=== PATIENT | female | born 1995 | race Caucasian/White ===

== ENCOUNTER 2023-06-04 20:11 | Outpatient (REF) | payer OTHER, SELFPAY ==
[2023-06-08 14:16] LABS: Age Gdln ACOG Testing Note (.); IGP, rfx Aptima HPV ASCU Note (.)
== END 2023-06-04 20:12 | disposition home or self-care (01) ==
LOC: LAB 20:11
PROVIDERS: Visit Provider Obstetrics & Gynecology
DX: Z01.419 Encounter for gynecological examination (general) (routine) without abnormal findings (principal)
CPT/HCPCS: G0145

== ENCOUNTER 2024-06-22 20:05 | Outpatient (REF) | payer OTHER, SELFPAY ==
--- OUTSIDE RECORDS SUMMARY | 2024-06-22 20:09 | XMS_ITS | CCD ---
Author Organization [facility] Care Team Providers Care Guide Delegate Name Role Phone REYNA, DR MUHAMMAD Attending Unavailable REYNA, DR MUHAMMAD Consulting Unavailable BRAD, DR SOL [facility] Care Unavailable REYNA, DR MUHAMMAD Admitting Unavailable REYNA, DR MUHAMMAD Attending Unavailable REYNA, DR MUHAMMAD Consulting Unavailable BRAD, DR SOL [facility] Unavailable REYNA, DR MUHAMMAD Admitting Unavailable REYNA, DR MUHAMMAD Admitting Unavailable BRAD, DR SOL [facility] Unavailable REYNA, DR MUHAMMAD Attending Unavailable REYNA, DR MUHAMMAD Consulting Unavailable ZIEBER, DR RACHEL Valle Consulting Unavailable REYNA, DR MUHAMMAD Admitting Unavailable REYNA, DR MUHAMMAD Attending Unavailable REYNA, DR MUHAMMAD Consulting Unavailable BRAD, DR SOL [facility] Unavailable BAO, DAMI Consulting Unavailable REYNA, DR MUHAMMAD Procedure Practitioner Unavailab le REYNA, DR MUHAMMAD Admitting Unavailable BRAD, DR SOL [facility] Unavailable REYNA, DR MUHAMMAD Attending Unavailable REYNA, DR MUHAMMAD Admitting Unavailable REYNA, DR MUHAMMAD Consulting Unavailable REYNA, DR MUHAMMAD Attending Unavailable BRAD, DR SOL [facility] Unavailable Adilene Berrios Unavailable Medications Current Medications Medication Drug Class(es) Dates Sig (Normalized) Sig (Original) amoxicillin 875 mg oral tablet (1 source) Penicillin-class Antibacterial Start: 2 take 1 tablet by mouth every twelve hours Amoxicillin 875 MG 1 tablet Orally every 12 hrs for 7 days Jul, Active methylPREDNISolone 4 mg oral tablet (1 source) Corticosteroid Start: 2 methylPREDNISolone 4 MG as directed Orally Once a day for 6 days Jul, Active Problems Active Problems Problem Classification Problem Date Documented Date Episodic/Chronic Immunizations and screening for infectious disease (1 source) Encounter for screening for human papillomavirus (HPV); Translations: [ENC SCREENING HUMAN PAPILLOMAVIRUS] Onset: 04-28-2022 Episodic Menstrual disorders (4 sources) Irregular menstruation, unspecified; Translations: [IRREGULAR MENSTRUATION UNSPECIFIED] Onset: 03-30-2022 Chronic Other screening for suspected conditions (not mental disorders or infectious disease) (12 sources) Encounter for screening for malignant neoplasm of cervix; Translations: [Encounter for screening for Streptococcus B] Onset: 05-13-2021 Episodic Otitis media and related conditions (1 source) Otitis media, unspecified, right ear Episodic Unclassified (1 source) CONTACT W/AND (SUSP) EXPOS COVID-19; Translations: [CONTACT W/AND (SUSP) EXPOS COVID-19] Onset: 08-14-2021 Past or Other Problems Problem Classification Problem Date Documented Date Episodic/Chronic OB-related trauma to perineum and vulva (1 source) First degree perineal laceration during delivery; Translations: [FIRST DEG PERINEAL LAC DUR DELIV] Onset: 08-14-2021 Episodic Other complications of ; puerperium affecting management of mother (1 source) Streptococcus B carrier state complicating childbirth; Translations: [STREP B DOSHI STATE COMP CHILDBIRTH] Onset: 08-14-2021 Episodic Other and delivery including normal (3 sources) Encounter for supervision of normal , unspecified, third trimester; Translations: [Single live ] Onset: 08-07-2021 Episodic Residual codes; unclassified (1 source) 39 weeks gestation of ; Translations: [39 WEEKS GESTATION OF ] Onset: 08-14-2021 Episodic Umbilical cord complication (1 source) Labor and delivery complicated by cord around neck, without compression, not applicable or unspecified; Translations: [L AND D COMP CORD NECK NO COMPRS NA/UNS] Onset: 08-14-2021 Episodic Results Test Name Value Interpretation Reference Range Facil ity PAP ACOG PANEL 2: 21 to 29on 05-01-2022 . . [facility] Comment on above: Performed By: #### [id number] #### [facility] [address] [place], [place] [address] Dr. Herman Calvert Age Gdln ACOG Testing 21-29 Normal [facility] Comment on above: Performed By: #### [id number] #### [facility] [address] [place] [address] Dr. Herman Calvert DIAGNOSIS: Comment Normal [facility] Comment on above: Result Comment: NEGA TIVE FOR INTRAEPITHELIAL LESION OR MALIGNANCY. THIS SPECIMEN WAS RESCREENED PART OF OUR ELECTRONICS TECH PROGRAM. Performed By: #### [id number] #### [facility] [address] [place] [address] Dr. Herman Calvert Methodology: Comment Normal [facility] Comment on above: Result Comment: This liquid based ThinPrep(R) pap test was screened with the use of an image guided system. Performed By: #### [id number] #### [facility] [address] [place] [address] Dr. Herman Calvert Note: Comment Normal [facility] Comment on above: Result Comment: The Pap smear is a screening test designed to aid in the detection of premalignant and malignant conditions of the uterine cervix. It is not a diagnostic procedure and should not be used as the sole means of detecting cervical cancer. Both false-positive and false-negative reports do occur. . Performed By: #### [id number] #### [facility] [address] [place] [address] Dr. Herman Calvert Performed by: Comment Normal [facility] Comment on above: Result Comment: Lukas De La Torre, Sand Operator (ASCP) Performed By: #### [id number] #### [facility] [address] [place] [address] Dr. Herman Calvert QC reviewed by: Comment Normal [facility] Comment on above: Result Comment: Jennie Rai, Sand Operator (ASCP) Performed By: #### [id number] #### [facility] [address] [place] [address] Dr. Herman Calvert Reflex Criteria: Comment [facility] Comment on above: Result Comment: The HPV DNA reflex criteria were not met with this specimen result therefore, no HPV testing was performed. . Performed By: #### [id number] #### [facility] [address] [place] [address] Dr. Herman Calvert Specimen adequacy: Comment Normal [facility] Comment on above: Result Comment: Sati sfactory for evaluation. Endocervical and/or squamous metaplastic cells (endocervical component) are present. Performed By: #### [id number] #### [facility] [address] [place] [address] Dr. Herman Calvert HCG-BETA SUBUNIT QUANTon hCG,Beta Subunit,Qnt,Serum <1 Normal [facility] Comment on above: Result Comment: Fema le (Non-) 0 - 5 (Postmenopausal) 0 - 8 . Female () Weeks of Gestation 3 6 - 71 4 10 - 750 5 196 - 3755 6 097 - 82757 7 [id number] [phone] 8 11918 -[phone] 9 56932 -[phone] 10 31893 -[phone] 12 64536 -[phone] 14 08442 - 35698 15 12806 - 05037 16 7477 - 75195 17 4778 - 95151 18 0030 - 98796 Samantha ECLIA methodology Performed By: #### D RUGRPD #### [facility] [address] [place] [address] Dr. Herman Calvert CBC AUTO DIFFon 03-30-2022 BASO # 0.0 103/ul Normal 0.0-0.1 [facility] Comment on above: Performed By: #### C BC #### [facility] [address] [place] [address] Dr. Herman Calvert Basophils/100 WBC (Bld) 0.3 % Normal 0.2-2.0 [facility] Comment on above: Performed By: #### C BC #### [facility] [address] [place] [address] Dr. Herman Clavert EO # 0.1 103/ul Normal 0.0-0.7 [facility] Comment on above: Performed By: #### C BC #### [facility] [address] [place] [address] Dr. Herman Calvert Eosinophils/100 WBC (Bld) 1.6 % Normal 0.9-7.0 [facility] Comment on above: Performed By: #### C BC #### [facility] [address] [place] [address] Dr. Herman Calvert Erythrocyte distribution width (RBC) [Ratio] 12.7 % Normal 11.0-15.0 [facility] Comment on above: Performed By: #### C BC #### [facility] [address] [place] [address] Dr. Herman Calvert Hematocrit (Bld) [Volume fraction] 40.9 % Normal 36.0-48.0 [facility] Comment on above: Performed By: #### C BC #### [facility] [address] [place] [address] Dr. Herman Calvert Hemoglobin (Bld) [Mass/Vol] 13.2 g/dL Normal 12.0-16.0 [facility] Comment on above: Performed By: #### C BC #### [facility] [address] [place] [address] Dr. Herman Calvert IG # 0.02 10e3/ul Normal 0.00-0.03 [facility] Comment on above: Performed By: #### C BC #### [facility] [address] [place] [address] Dr. Herman Calvert IG % 0.3 % Normal 0.0-0.5 [facility] Comment on above: Performed By: #### C BC #### [facility] [address] [place] [address] Dr. Herman Calvert LYMPH # 2.4 103/ul Normal 1.2-3.8 [facility] Comment on above: Performed By: #### C BC #### [facility] [address] [place] [address] Dr. Herman Calvert Lymphocytes/100 WBC (Bld) 31.3 % Normal 20.5-60.0 [facility] Comment on above: Performed By: #### C BC #### [facility] [address] [place] [address] Dr. Herman Calvert MANUAL DIFF REQ NO Normal [facility] [place] [facility] Comment on above: Performed By: #### C BC #### [facility] [address] [place] [address] Dr. Herman Calvert MCH (RBC) [Entitic mass] 27.8 pg Normal 26.7-34.0 [facility] Comment on above: Performed By: #### C BC #### [facility] [address] [place] [address] Dr. Herman Calvert MCHC (RBC) [Mass/Vol] 32.3 g/dL Normal 29.9-35.2 [facility] Comment on above: Performed By: #### C BC #### [facility] [address] [place] [address] Dr. Herman Calvert MCV (RBC) [Entitic vol] 86.1 fL Normal 81.0-99.0 [facility] Comment on above: Performed By: #### C BC #### [facility] [address] [place] [address] Dr. Herman Calvert MONO # 0.5 103/ul Normal 0.3-0.8 [facility] Comment on above: Performed By: #### C BC #### [facility] [address] [place] [address] Dr. Herman Calvert Monocytes/100 WBC (Bld) 5.9 % Normal 1.7-12.0 [facility] Comment on above: Performed By: #### C BC #### [facility] [address] [place] [address] Dr. Herman Calvert NEUT # 4.6 103/ul Normal 1.4-6.5 [facility] Comment on above: Performed By: #### C BC #### [facility] [address] [place] [address] Dr. Herman Calvert Neutrophils/100 WBC (Bld) 60.6 % Normal 43.0-75.0 [facility] Comment on above: Performed By: #### C BC #### [facility] [address] [place] [address] Dr. Herman Calvert Platelet mean volume (Bld) [Entitic vol] 10.3 fL Normal 9.5-13.5 [facility] Comment on above: Performed By: #### C BC #### [facility] [address] [place] [address] Dr. Herman Calvert PLT 218 103/ul Normal 150-450 [facility] Comment on above: Performed By: #### C BC #### [facility] [address] [place] [address] Dr. Herman Calvert RBC 4.75 106/ul Normal 4.20-5.40 [facility] Comment on above: Performed By: #### C BC #### [facility] [address] [place] [address] Dr. Herman Calvert WBC 7.6 103/ul Normal 4.0-11.0 [facility] Comment on above: Performed By: #### C BC #### [facility] [address] [place] [address] Dr. Herman Calvert PROTIMEon 03-30-2022 INR Coag (PPP) [Relative time] 1.09 {INR} Normal [facility] Comment on above: Performed By: #### P TT, PT #### [facility] [address] [place] [address] Dr. Herman Calvert INR GUIDELINES SEE BELOW Normal [facility] Comment on above: Result Comment: PRASHANT RED INR: 2.0 - 3.0 CONDITIONS NOT LISTED BELOW 2.5 - 3.5 FOR PROSTHETIC HEART VALVE REPLACEMENT 2.5 - 3.5 RECURRENT THROMBOSIS Performed By: #### P TT, PT #### [facility] [address] [place] [address] Dr. Herman Calvert PT Coag (PPP) [Time] 11.7 s Critically high 9.0-11.6 [facility] Comment on above: Performed By: #### P TT, PT #### [facility] [address] [place] [address] Dr. Herman Calvert PTTon 03-30-2022 aPTT Coag (Bld) [Time] 29.1 s Normal 22.3-36.2 [facility] Comment on above: Performed By: #### P TT, PT #### [facility] [address] [place] [address] Dr. Herman Calvert TSHon 03-30-2022 TSH 2.079 uIU/mL Normal 0.358-3.740 [facility] Comment on above: Performed By: #### T #### [facility] [address] [place] [address] Dr. Herman Calvert US PELVIS AND TRANSVAGon US PELVIS AND TRANSVAG EXAMINATION: US PELVIS AND TRANSVAG HISTORY: Irregular periods COMPARISON: No relevant comparison available. TECHNIQUE: Transabdominal and transvaginal sonographic examination. FINDINGS: UTERUS: Normal size and appearance. Uterus size: 7.9 x 4.4 x 4.8 cm ENDOMETRIUM: Normal homogeneous appearance. Endometrial thickness: 6 mm RIGHT OVARY: Normal size and appearance. Duplex Doppler demonstrates normal waveform and flow; resistive index 0.5. Ovary size: 3.7 x 2.2 x 1.8 cm LEFT OVARY: Normal size and appearance. Duplex Doppler demonstrates normal waveform and flow; resistive index 0.4. Ovary size: 3.8 x 2.9 x 2.0 cm CUL-DE-SAC: Unremarkable. No significant free fluid. BLADDER: Unremarkable. OTHER: None. IMPRESSION: 1. Normal pelvic ultrasound. No suspicious findings. Electronically authenticated by: RACHEL CANDELARIA Date: 2022-03-30 17:47 Normal [facility] CBC W MANUAL DIFFon 08-08-20 21 ATYPICAL LYMPH # Normal [facility] Comment on above: Performed By: #### Roro MCARTHUR #### [facility] [address] [place] [address] Dr. Herman Calvert ATYPICAL LYMPH % Normal [facility] Comment on above: Performed By: #### Roro MCARTHUR #### [facility] [address] [place] [address] Dr. Herman Calvert BAND # Normal 0.0-0.3 [facility] Comment on above: Performed By: #### Roro MCARTHUR #### [facility] [address] [place] [address] Dr. Herman Calvert BAND % Normal 0-5 [facility] Comment on above: Performed By: #### Roro MCARTHUR #### [facility] [address] [place] [address] Dr. Herman Calvert BASOM # 0.00 103/ul Normal 0.00-0.10 [facility] Comment on above: Performed By: #### C LYUBOV #### [facility] [address] [address] [address] Herman Calvert BASOM % 0.0 % Critically low 0.2-2.[address] [facility] Comment on above: Performed By: #### C LYUBOV #### [facility] [address] [place] [address] Dr. Herman Calvert BLAST # Normal [facility] Comment on above: Performed By: #### C BCANGELES #### [facility] [address] [place] [address] Dr. Herman Calvert BLAST % Normal [facility] Comment on above: Performed By: #### C LYUBOV #### [facility] [address] [place] [address] Dr. Herman Calvert CORRECTED WBC Normal 4.0-11.0 [facility] Comment on above: Performed By: #### C LYUBOV #### [facility] [address] [place] [address] Dr. Herman Calvert EOS # 0.21 103/ul Normal 0.00-0.70 [facility] Comment on above: Performed By: #### C LYUBOV #### [facility] [address] [place] [address] Dr. Herman Calvert EOS% 2.0 % Normal 0.9-7.0 [facility] Comment on above: Performed By: #### C LYUBOV #### [facility] [address] [place] [address] Dr. Herman Calvert HCT 37.5 % Normal 36.0-48.0 [facility] Comment on above: Performed By: #### C LYUBOV #### [facility] [address] [place] [address] Dr. Herman Calvert HGB 12.0 g/dl Normal 12.0-16.0 [facility] Comment on above: Performed By: #### C LYUBOV #### [facility] [address] [place] [address] Dr. Herman Calvert LYMPHM # 1.71 103/ul Normal 1.20-3.80 [facility] Comment on above: Performed By: #### C LYUBOV #### [facility] [address] [place] [address] [address] Herman Calvert LYMPHM% 16.0 % Critically low 20.5-60.[address] [facility] Comment on above: Performed By: #### C LYUBOV #### [facility] [address] [place] [address] Dr. Herman Calvert MCH 29.7 pg Normal 26.7-34.0 [facility] Comment on above: Performed By: #### C LYUBOV #### [facility] [address] [place] [address] Dr. Herman Calvert MCHC 32.0 g/dl Normal 29.9-35.2 [facility] Comment on above: Performed By: #### C LYUBOV #### [facility] [address] [place] [address] Dr. Herman Calvert MCV 92.8 fL Normal 81.0-99.0 [facility] Comment on above: Performed By: #### C LYUBOV #### [facility] [address] [place] [address] Dr. Herman Calvert METAMYELOCYTE # Normal [facility] [place] [facility] Comment on above: Performed By: #### C LYUBOV #### [facility] [address] [place] [address] Dr. Herman Calvert METAMYELOCYTE % Normal [facility] [place] [facility] Comment on above: Performed By: #### C LYUBOV #### [facility] [address] [place] [address] Dr. Herman Calvert MONOM# 0.54 103/ul Normal 0.30-0.80 [facility] Comment on above: Performed By: #### C LYUBOV #### [facility] [address] [place] [address] Dr. Herman Calvert MONOM% 5.0 % Normal 1.7-12.0 [facility] Comment on above: Performed By: #### C LYUBOV #### [facility] [address] [place] [address] Dr. Herman Calvert MPV 11.4 fL Normal 9.5-13.5 [facility] Comment on above: Performed By: #### C LYUBOV #### [facility] [address] [place] [address] Dr. Herman Calvert MYELOCYTE # Normal [facility] Comment on above: Performed By: #### C LYUBOV #### [facility] [address] [place] [address] Dr. Herman Calvert MYELOCYTE % Normal [facility] Comment on above: Performed By: #### C LYUBOV #### [facility] [address] [place] [address] Dr. Herman Calvert NRBC Normal [facility] Comment on above: Performed By: #### C LYUBOV #### [facility] [address] [place] [address] Dr. Herman Calvert PLT 107 103/ul Critically low 150-[address] [facility] Comment on above: Performed By: #### C LYUBOV #### [facility] [address] [place] [address] Dr. Herman Calvert RBC 4.04 106/ul Critically low 4.20-5.40 [facility] Comment on above: Performed By: #### C LYUBOV #### [facility] [address] [place] [address] Dr. Herman Calvert RDW 13.4 % Normal 11.0-15.0 [facility] Comment on above: Performed By: #### C LYUBOV #### [facility] [address] [place] [address] Dr. Herman Calvert SEG # 8.24 103/ul Critically high 1.40-6.50 [facility] Comment on above: Performed By: #### C LYUBOV #### [facility] [address] [place] [address] Dr. Herman Calvert SEG % 77.0 % Critically high 43.0-75.0 [facility] Comment on above: Performed By: #### C LYUBOV #### [facility] [address] [place] [address] Dr. Herman Calvert WBC 10.7 103/ul Normal 4.0-11.0 [facility] Comment on above: Performed By: #### C BCMAN #### [facility] [address] [place] [address] Dr. Herman Calvert CBC AUTO DIFFon 08-07-2021 BASO # 0.0 103/ul Normal 0.0-0.1 [facility] Comment on above: Performed By: #### C BC #### [facility] [address] [place] [address] Dr. Herman Calvert Basophils/100 WBC (Bld) 0.2 % Normal 0.2-2.0 [facility] Comment on above: Performed By: #### C BC #### [facility] [address] [place] [address] Dr. Herman Calvert EO # 0.1 103/ul Normal 0.0-0.7 [facility] Comment on above: Performed By: #### C BC #### [facility] [address] [place] [address] Dr. Herman Calvert Eosinophils/100 WBC (Bld) 0.8 % Critically low 0.9-7.0 [facility] Comment on above: Performed By: #### C BC #### [facility] [address] [place] [address] Dr. Herman Calvert Erythrocyte distribution width (RBC) [Ratio] 13.2 % Normal 11.0-15.0 [facility] Comment on above: Performed By: #### C BC #### [facility] [address] [place] [address] Dr. Herman Calvert Hematocrit (Bld) [Volume fraction] 38.8 % Normal 36.0-48.0 [facility] Comment on above: Performed By: #### C BC #### [facility] [address] [place] [address] Dr. Herman Calvert Hemoglobin (Bld) [Mass/Vol] 12.5 g/dL Normal 12.0-16.0 [facility] Comment on above: Performed By: #### C BC #### [facility] [address] [place] [address] Dr. Herman Calvert IG # 0.07 10e3/ul Critically high 0.00-0.03 [facility] Comment on above: Performed By: #### C BC #### [facility] [address] [place] [address] Dr. Herman Calvert IG % 0.6 % Critically high 0.0-0.5 [facility] Comment on above: Performed By: #### C BC #### [facility] [address] [place] [address] Dr. Herman Calvert LYMPH # 1.1 103/ul Critically low 1.2-3.[address] [facility] Comment on above: Performed By: #### C BC #### [facility] [address] [place] [address] Dr. Herman Calvert Lymphocytes/100 WBC (Bld) 8.7 % Critically low 20.5-60.0 [facility] Comment on above: Performed By: #### C BC #### [facility] [address] [place] [address] Dr. Herman Calvert MANUAL DIFF REQ NO Normal [facility] Comment on above: Performed By: #### C BC #### [facility] [address] [place] [address] Dr. Herman Calvert MCH (RBC) [Entitic mass] 29.4 pg Normal 26.7-34.0 [facility] Comment on above: Performed By: #### C BC #### [facility] [address] [place] [address] Dr. Herman Calvert MCHC (RBC) [Mass/Vol] 32.2 g/dL Normal 29.9-35.2 [facility] Comment on above: Performed By: #### C BC #### [facility] [address] [place] [address] Dr. Herman Calvert MCV (RBC) [Entitic vol] 91.3 fL Normal 81.0-99.0 [facility] Comment on above: Performed By: #### C BC #### [facility] [address] [place] [address] Dr. Herman Calvert MONO # 0.7 103/ul Normal 0.3-0.8 [facility] Comment on above: Performed By: #### C BC #### [facility] [address] [place] [address] Dr. Herman Calvert Monocytes/100 WBC (Bld) 5.3 % Normal 1.7-12.0 [facility] Comment on above: Performed By: #### C BC #### [facility] [address] [place] [address] Dr. Herman Calvert NEUT # 10.5 103/ul Critically high 1.4-6.5 [facility] Comment on above: Performed By: #### C BC #### [facility] [address] [place] [address] Dr. Herman Calvert Neutrophils/100 WBC (Bld) 84.4 % Critically high 43.0-75.0 [facility] Comment on above: Performed By: #### C BC #### [facility] [address] [place] [address] Dr. Herman Calvert Platelet mean volume (Bld) [Entitic vol] 12.0 fL Normal 9.5-13.5 [facility] Comment on above: Performed By: #### C BC #### [facility] [address] [place] [address] Dr. Herman Calvert PLT 118 103/ul Critically low 150-[address] [facility] Comment on above: Performed By: #### C BC #### [facility] [address] [place] [address] Dr. Herman Calvert RBC 4.25 106/ul Normal 4.20-5.40 [facility] Comment on above: Performed By: #### C BC #### [facility] [address] [place] [address] Dr. Herman Calvert WBC 12.5 103/ul Critically high 4.0-11.0 [facility] Comment on above: Performed By: #### C BC #### [facility] [address] [place] [address] Dr. Herman Calvert Covid-19 PCR ([facility])on 07-13 SARS-CoV-2 (COVID-19) RNA MUKUND+probe Ql (Unsp spec) Not detected Normal NOT DETECTED [facility] Comment on above: Result Comment: When diagnostic testing is negative, the possibility of a false negative should be considered in the context of a patient's recent exposures and the presence of clinical signs and symptoms consistent with SARS-CoV-2. This test is not yet approved or cleared by the [place] FDA. When there are no FDA-approved or cleared tests available, and other criteria are met, FDA can make tests available under an emergency access mechanism called an Emergency Use Authorization (EUA). The EUA for this test is supported by the [place] of Health and Human Service's declaration that circumstances exist to justify the emergency use of in vitro diagnostics for the detection and/or diagnosis of the virus that causes COVID-19. This EUA will remain in effect for the duration of the COVID-19 declaration justifying emergency of IVDs, unless it is terminated or revoked by the FDA (after which the test may no longer be used). Performed By: #### C VDTBH #### [facility] [address] [place] [address] Dr. Herman Calvert DRUG SCREEN RAPID (URINE)on 08-07-2021 AMP Negative Normal NEGATIVE [facility] Comment on above: Performed By: #### D RUGRPD #### [facility] [address] [place] [address] Dr. Herman Calvert BAR Negative Normal NEGATIVE [facility] Comment on above: Performed By: #### D RUGRPD #### [facility] [address] [place] [address] Dr. Herman Calvert BUP Negative Normal NEGATIVE [facility] Comment on above: Performed By: #### D RUGRPD #### [facility] [address] [address] [address] Herman Calvert BZO Negative Normal NEGATIVE [facility] Comment on above: Performed By: #### D RUGRPD #### [facility] [address] [place] [address] Dr. Herman Calvert JOHNNIE Negative Normal NEGATIVE [facility] Comment on above: Performed By: #### D RUGRPD #### [facility] [address] [place] [address] Dr. Herman Calvert CUT-OFFS SEE BELOW Normal [facility] Comment on above: Result Comment: AMP (Amphetamine): 500ng/mL, BAR (Barbituates): 200 ng/mL, BZO (Benzodiazepines): 150 ng/mL, BUP (Buprenorphine): 10 ng/mL, JOHNNIE (Cocaine): 150 ng/mL, mAMP (Methamphetamine): 500 ng/mL, MTD (Methadone): 200 ng/mL, OPI (Opiates): 100 ng/mL, OXY (Oxycodone): 100 ng/mL, PCP (Phencyclidine): 25 ng/mL, PPX (Propoxyphene): 300 ng/mL, THC (Cannabinoids): 50 ng/mL, TCA (Trycyclic Antidepressants): 300 ng/mL Performed By: #### D RUGRPD #### [facility] [address] [place] [address] Dr. Herman Calvert DRUG CUT HEADER DRUG CLASS TEST SYST EM CUT-OFF CONCENTRATIONS ARE FOLLOWS: Normal [facility] Comment on above: Performed By: #### D RUGRPD #### [facility] [address] [place] [address] Dr. Herman Calvert mAMP Negative Normal NEGATIVE [facility] Comment on above: Performed By: #### D RUGRPD #### [facility] [address] [place] [address] Dr. Herman Calvert MTD Negative Normal NEGATIVE [facility] Comment on above: Performed By: #### D RUGRPD #### [facility] [address] [place] [address] Dr. Herman Calvert OPI Negative Normal NEGATIVE [facility] Comment on above: Performed By: #### D RUGRPD #### [facility] [address] [place] [address] Dr. Herman Calvert OXY Negative Normal NEGATIVE [facility] Comment on above: Performed By: #### D RUGRPD #### [facility] [address] [place] [address] Dr. Herman Calvert PCP Negative Normal NEGATIVE [facility] Comment on above: Performed By: #### D RUGRPD #### [facility] [address] [place] [address] Dr. Herman Calvert PPX Negative Normal NEGATIVE [facility] Comment on above: Performed By: #### D RUGRPD #### [facility] [address] [place] [address] Dr. Herman Calvert TCA Negative Normal NEGATIVE [facility] Comment on above: Performed By: #### D RUGRPD #### [facility] [address] [place] [address] Dr. Herman Calvert THC Negative Normal NEGATIVE [facility] Comment on above: Performed By: #### D RUGRPD #### [facility] [address] [place] [address] Dr. Herman Calvert TYPE AND SCREENon 08-07-2021 TYPE AND SCREEN Negative Normal [facility] Comment on above: Performed By: #### D RUGRPD #### [facility] [address] [place] [address] Dr. Herman Calvert GROUP B STREP CULTUREon 07-12 S. agalactiae Ag Ql (Unsp spec) Culture Observations: GB STREP CALD JAIME MERRILL,VEGETABLE SORTER@/2/ Isolate 1 Streptococcus agalactiae Heavy growth of ORGANISM 1 Streptococcus agalactiae ANTIBIOTIC M.I.C RX STATUS Ampicillin <=0.25 S F Cefotaxime <=0.12 S F Ceftriaxone <=0.12 S F Levofloxacin 0.5 S F Inducible Clindamycin Resistance Neg NEG F Erythromycin >=8 R F Clindamycin >=1 R F Linezolid <=2 S F Vancomycin 0.5 S F Tetracycline >=16 R F Normal [facility] Comment on above: Performed By: #### D RUGRPD #### [facility] [address] [place] [address] Dr. Herman Calvert GLUCOSE - 1HRon 05-13-2021 Glucose [Mass/Vol] 76 mg/dL Normal 74-106 [facility] Comment on above: Performed By: #### D RUGRPD #### [facility] [address] [place] [address] Dr. Herman Calvert HEMOGRAM AND PLATELon 2020 Hematocrit (Bld) [Volume fraction] 36.1 % Normal 36.0-48.0 [facility] Comment on above: Performed By: #### H H #### [facility] [address] [address] [address] Herman Calvert Hemoglobin (Bld) [Mass/Vol] 11.9 g/dL Critically low 12.0-16.0 [facility] Comment on above: Performed By: #### H H #### [facility] [address] [address] [address] Herman Calvert MCH (RBC) [Entitic mass] 29.5 pg Normal 26.7-34.0 [facility] Comment on above: Performed By: #### H H #### [facility] [address] [place] [address] Dr. Herman Calvert MCHC (RBC) [Mass/Vol] 33.0 g/dL Normal 29.9-35.2 [facility] Comment on above: Performed By: #### H H #### [facility] [address] [address] [address] Herman Calvert MCV (RBC) [Entitic vol] 89.4 fL Normal 81.0-99.0 [facility] Comment on above: Performed By: #### H H #### [facility] [address] [address] [address] Herman Calvert PLT 142 103/ul Critically low 150-450 [facility] Comment on above: Performed By: #### H H #### [facility] [address] [address] [address] Herman Calvert RBC 4.04 106/ul Critically low 4.20-5.40 [facility] Comment on above: Performed By: #### H H #### [facility] [address] [address] [address] Herman Calvert WBC 10.9 103/ul Normal 4.0-11.0 [facility] Comment on above: Performed By: #### H H #### [facility] [address] [address] [address] Herman Calvert Vital Signs Date Time Vital Sign Value Performing Clinician Facility 07-14-2022 10:35-0500 Body height 172.72 cm Adilene Berrios Other [facility] 07-14-2022 10:35-0500 Body mass index (BMI) [Ratio] 24.33 kg/m2 Adilene Berrios Other [facility] 07-14-2022 10:35-0500 Body temperature 98.6 [degF] Adilene Yash Other [facility] Other 07-14-2022 10:35-0500 Body weight 72.58 kg Adilene Berrios Other [facility] Other 07-14-2022 10:35-0500 Respiratory rate 18 /min Adilene Berrios Other [facility] Other 07-14-2022 10:35-0500 SaO2% (BldA) [Mass fraction] 97 % Adilene Yash Other [facility] Other Encounters Encounter Date Encounter Type Care Provider Facility Start: 07-14-2022 End: 07-14-2022 ambulatory Adilene Berrios Other [facility] Other Start: 07-14-2022 Office outpatient ne w 20 minutes Adilene Berrios [facility] Start: 04-23-2022 End: 04-23-[address] SABINA ORELLANA Facility:[facility] Start: 03-30-2022 End: 03-31-[address] SABINA ORELLANA Facility:[facility] Start: 08-10-[address] SABINA ORELLANA Facility :[facility] Start: 08-07-2021 End: 08-08-2021 Evaluation and management of inpatient DR SABINA ORELLANA Facility:[facility] Start: 07-18-2021 End: 07-18-[address] SABINA ORELLANA Facility:[facility] Start: 05-13-2021 End: 05-14-[address] SABINA ORELLANA Facility:[facility] Procedures Date Procedure Procedure Detail Performing Clinician Start: 08-07-2021 Delivery of Products of Conception, External Approach DR SABINA ORELLANA Start: 08-07-2021 Drainage of Amniotic Fluid, Therapeutic from Products of Conception, Via Natural or Artificial Opening DR SABINA ORELLANA Start: 08-07-2021 Introduction of Othe r Hormone into Peripheral Vein, Percutaneous Approach DR SABINA ORELLANA Start: 08-07-2021 Repair Perineum Skin , External Approach DR SABINA ORELLANA Payers Date Payer Category Payer Unknown [id number] 2.16.84 [id number] 1995 Unknown [id number] 2.16.84 [id number] 1995 Unknown [id number] 2.16.84 [id number] 1995 Unknown [id number] 2.16.84 [id number] 1995 Unknown [id number] 2.16.84 [id number] 1995 Unknown [id number] 2.16.84 [id number] 1959 Unknown [id number] Social History Date Type Detail Facility Sex Assigned At [facility] Other Evaluation note 07-14-2022 Note Date & Type Note Facility 07-14-2022 Evaluation note Encounter Date Diagnosis Assessment Notes Jul, Right acute otitis media (ICD-10 - H66.91) Ear infections are often a secondary infection caused from an URI, the flu or allergies. Take medication as directed. Complete all doses, even if you feel better. Tylenol or ibuprofen can help with pain. Warm pack to area for comfort helps as well. Follow up with primary care provider if no improvement of symptoms. [facility] Other Summary Purpose Family History No Family History Records Found Advance Directives No Advanced Directives Records Found Additional Source Comments INFORMATION SOURCE (unrecogn ized section and content) DATE CREATED AUTHOR 05/12/2022 [facility] REASON FOR VISIT (unrecogniz ed section and content) RIGHT EAR CLOG FOR RECORDS PERTAINING TO PATIENTS WHO ARE OR HAVE BEEN ENROLLED IN A CHEMICAL DEPENDENCY/SUBSTANCEABUSE PROGRAM, SOME INFORMATION MAY BE OMITTED. This clinical summary was aggregated from multiple sources. Caution should be exercised in using it in the provision of clinical care. This summary normalizes information from multiple sources, and as a consequence, information in this document may materially change the coding, format and clinical context of patient data. In addition, data may be omitted in some cases. CLINICAL DECISIONS SHOULD BE BASED ON THE PRIMARY CLINICAL RECORDS. [employer] provides no warranty or guarantee of the accuracy or completeness of information in this document.
== END 2024-06-22 20:06 | disposition home or self-care (01) ==
LOC: LAB 20:05
PROVIDERS: Visit Provider Obstetrics & Gynecology
DX: Z01.419 Encounter for gynecological examination (general) (routine) without abnormal findings (principal)
CPT/HCPCS: 88175